=== PATIENT | male | born 1995 | race Caucasian/White ===

== ENCOUNTER → 2016-09-17 | Outpatient (CLI) | payer OTHER ==
--- NOTE | 2016-09-17 21:49 | MR ---
EXAMINATION TYPE: MR thoracic spine wo con DATE OF EXAM: 09/17/2016 COMPARISON: NONE HISTORY: Chest and mid back pain x 3 mos per patient. Thoracic back pain per order. TECHNIQUE: Multiplanar, multisequence imaging of thoracic spine is performed without contrast FINDINGS: Spinal cord shows normal caliber and signal as it courses the thoracic spine. There is a de xtroconvex scoliosis centered in the mid thoracic spine seen on coronal images. Vertebral body heigh ts are satisfactory. Disc space heights and hydration are maintained. No significant posterior disc herniations are seen on sagittal images. No significant spurring is seen. Bone marrow signal intensit y is preserved. Loss of normal cervical curvature is seen on sagittal T2 counting sequence. Review of the axial images shows no significant spinal canal stenosis or neural foraminal narrowing a t any thoracic level. Conus medullaris is felt within normal limits near the thoracolumbar junction. IMPRESSION: Dextroconvex scoliosis otherwise unremarkable study.
== END | disposition home or self-care (01) ==
LOC: RADMRIMAIN 18:46
PROVIDERS: ATTEND Family Medicine
DX: M41.84 Other forms of scoliosis, thoracic region (principal); M54.6 Pain in thoracic spine
CPT/HCPCS: 72146

== ENCOUNTER → 2022-01-12 | Outpatient (CLI) | payer OTHER ==
--- NOTE | 2022-01-12 10:44 | US ---
EXAMINATION TYPE: US thyroid st tissue head/neck DATE OF EXAM: 01/12/2022 COMPARISON: NONE CLINICAL HISTORY: R79.89 abn findings blood chemistry. Pt states recent abnormal thyroid labs/ pt sta madisyn no known h/o thyroid issues GLAND SIZE: Right Lobe: 5.4 x 1.8 x 2.5 cm Overall Parenchyma: homogenous Left Lobe: 5.7 x 1.6 x 1.7 cm Overall Parenchyma: homogeneous Isthmus Thickness: 0.4 cm NODULES RIGHT: # of nodules measured on right: 0 LEFT: # of nodules measured on left: 0 ISTHMUS: # of nodules measured in the isthmus: 0 Bilateral neck scanned, no evidence of lymphadenopathy. No evidence of nodules bilaterally. Thyroid appeared enlarged bilaterally. IMPRESSION: Thyromegaly correlate thyroiditis. No sizable cystic or solid nodule. 2017 ACR TI-RADS LEVEL: TR-RADS 1 - BENIGN: No FNA *Highest TI-RADS level nodule reported
== END | disposition home or self-care (01) ==
LOC: RADUSWWP 07:05
PROVIDERS: ATTEND Family Medicine
DX: E01.0 Iodine-deficiency related diffuse (endemic) goiter (principal)
CPT/HCPCS: 76536